=== PATIENT | male | born 1960 | race Caucasian/White ===

== ENCOUNTER 2017-04-17 18:08 | Emergency (ER) | payer MEDICAID ==
[2017-04-17 18:08] VITALS: BMI 28.3
[2017-04-17 18:15] VITALS: RESP 18; O2SAT 100
[2017-04-17] MEDS ORDERED: Lidocaine 5% Patch TD STA (19:40)
[2017-04-17] MEDS ORDERED: Lidocaine 5% Patch TD ONE (19:47)
--- NOTE | 2017-04-17 20:26 | C.PDOC ---
History Of Present Illness 56 year old male with a Hx of sciatica who presents to the ER with a complaint of lower back pain that radiates to the left leg. Patient admits he was moving heavy furniture today; he states he took motrin at home with minimal relief to pain. Denies saddle anesthesia, dysuria, hematuria, incontinence, or recent trauma. Time Seen by Provider: 04/17/17 19:14 Chief Complaint (Nursing): Back Pain History Per: Patient History/Exam Limitations: no limitations Onset/Duration Of Symptoms: Hrs Current Symptoms Are (Timing): Still Present Quality Of Discomfort: Unable To Describe Severity: None Previous Symptoms: Chronic Pain Associated Symptoms: None Recent travel outside of the [place]: No Past Medical History Reviewed: Historical Data, Nursing Documentation, Vital Signs Vital Signs: Last Vital Signs Temp 98.4 F 04/17/17 20:36 Pulse 71 04/17/17 20:36 Resp 18 04/17/17 20:36 BP 143/75 04/17/17 20:36 Pulse Ox 100 04/17/17 20:36 - Medical History Other PMH: Sciatica Surgical History: No Surg Hx Family History: States: Unknown Family Hx - Social History Hx Tobacco Use: Yes Hx Alcohol Use: No Hx Substance Use: No - Immunization History Hx Tetanus Toxoid Vaccination: No Hx Influenza Vaccination: No Hx Pneumococcal Vaccination: No Review Of Systems Genitourinary: Negative for: Dysuria, Incontinence, Hematuria Musculoskeletal: Positive for: Back Pain, Leg Pain Neurological: Negative for: Weakness, Numbness Physical Exam - Physical Exam Appears: Non-toxic, No Acute Distress Skin: Normal Color, Warm, Dry Head: Atraumatic, Normacephalic Oral Mucosa: Moist Back: No Vertebral Tenderness, Paraspinal Tenderness (left lumbar) Extremity: Normal ROM (x4), No Tenderness Neurological/Psych: Oriented x3, Normal Speech, Normal Cognition, Normal Motor, Normal Sensation ED Course And Treatment O2 Sat by Pulse Oximetry: 100 (Room air) Pulse Ox Interpretation: Normal Progress Note: Tylenol and flexeri administered. Lidoderm applied. On reevaluation, patient is no longer in pain; is ambulatory in the ER with a steady gait. Will discharge home with instructions to follow up with PMD. Medical Decision Making Medical Decision Making: pt feeling somewhat better; pt has lidoderm patches and ibupforen at home;.; will add flexeril and tylenol, d/c for home and f/u pmd. Disposition Counseled Patient/Family Regarding: Diagnosis, Need For Followup, Rx Given - Disposition [facility]errals: [facility] [Outside] [facility] [Outside] Disposition: HOME/ ROUTINE Disposition Time: 20:22 Condition: STABLE Additional Instructions: Utilice parches de lidoderm lyndsay 12 horas en el carmen dolorosa por da, luego retire por 12 horas y luego reemplace si es necesario el da ext. [place] Ibuprofen 600 mg por va oral (3 tabletas de 200 mg) cada 6 horas para el dolor ; (con comida). Tylenol se puede leidy cada 6 horas si el dolor es renetta. Cyclobenzaprine leidy cada 8 horas, no conducir o operar maquinaria porque te hace sooliento. Seguimiento en la clnica [place]. Llame al servicio de conserjera para obtener aung rossi antes de la consulta mdica para randhawa ciruga ocular. Vuelva a la andre de emergencia para no empeorar los sntomas. Prescriptions: Acetaminophen [Tylenol 325mg tab] 650 mg PO Q6 #30 tab Cyclobenzaprine [Cyclobenzaprine HCl] 10 mg PO Q8 #9 tab Instructions: Sciatica (ED) Forms: [facility] (Palestinian), Work Excuse Print Language: POLISH - Clinical Impression Clinical Impression: Sciatica - Scribe Statement The provider has reviewed the documentation as recorded by the Scribsteven Bustamante All medical record entries made by the Scribe were at my direction and personally dictated by me. I have reviewed the chart and agree that the record accurately reflects my personal performance of the history, physical exam, medical decision making, and the department course for this patient. I have also personally directed, reviewed, and agree with the discharge instructions and disposition.
[2017-04-17 20:37] VITALS: BP 143/75; PULSE 71; TEMP 98.4
== END 2017-04-17 20:48 | disposition home or self-care (01) ==
LOC: C.ER 18:08
DX: M54.30 Sciatica, unspecified side (principal)

== ENCOUNTER 2017-05-29 06:10 | Day surgery (SDC) | payer MEDICAID ==
[2017-04-11 16:19] VITALS: BMI 28.3
[~2017-05-29 06:10] MED LIST: Ciprofloxacin 0.3% OPTH SOLN OS SCH; Cyclopentolate 1% Opth (2 ml) OS SCH; Flurbiprofen 0.03% Opht SOLN OS SCH; Lactated Ringer's 500 ML IV ONE; Phenylephrine 2.5% Opht Soln OS SCH; Tropicamide 1% Opht SOLUTION OS SCH
[2017-05-29] MEDS ORDERED: Lactated Ringer's 500 ML IV ONE (07:02)
[2017-05-29 07:32] VITALS: O2SAT 100
[2017-05-29] MEDS ORDERED: Povidone Iodine Ophthalmic 5% Soln ONE (07:39)
[2017-05-29] MEDS ORDERED: Tobramycin/Dexamethasone (Tobradex) Opth Sol (2.5 ml) ONE (07:39)
[2017-05-29] MEDS ORDERED: Carbachol 0.01% IO ONE (07:39)
[2017-05-29] MEDS ORDERED: Tobramycin/Dexamethasone OPHT OINT ONE (07:40)
[2017-05-29] MEDS ORDERED: Lidocaine 2% Inj (20ml) ONE (07:40)
[2017-05-29] MEDS ORDERED: Tetracaine 0.5% Ophth (OR ONLY) ONE (07:40)
[2017-05-29] MEDS ORDERED: Hyaluronidase Human, Recombi 150 U/ML VIAL ONE (07:40)
[2017-05-29] MEDS ORDERED: Chondroitin/Hyaluronate Opth Syringe KIT (0.55 ml-0.5 ml) IO ONE (07:40)
[2017-05-29] MEDS ORDERED: Propofol 10 mg/ml Inj (20 ML) ONE (08:50)
[2017-05-29] MEDS ORDERED: Lidocaine Hydrochloride 5 ML INJ ONE (08:51)
[2017-05-29 09:50] VITALS: RESP 18; TEMP 97.2
[2017-05-29 09:52] VITALS: BP 130/70; PULSE 69
--- NOTE | 2017-05-30 05:32 | OP ---
PROCEDURE DATE: 05/29/2017 PREOPERATIVE DIAGNOSIS: Cataract, left eye. POSTOPERATIVE DIAGNOSIS: Cataract, left eye. OPERATIVE PROCEDURE: Cataract extraction with implant, left eye. ANESTHESIA TYPE: Local, standby. COMPLICATIONS: None. PROCEDURE: Local anesthesia was achieved using a mixture of 1% lidocaine and Amphadase. The patient was then prepped and draped in the usual sterile fashion for ophthalmic surgery. Betadine drops were placed into the eye. A lid speculum was used and a sideport incision was made using a 15 degree blade. Viscoelastic was used to fill the anterior chamber and a 2.7 millimeter slit blade was used to create a surgical opening. Additional viscoelastic was placed into the eye and a capsulorrhexis was performed. Hydrodissection and delineation were then carried out. Phacoemulsification of the nucleus was performed with ease and cortical cleanup was achieved without difficulty. The capsular bag was refilled using viscoelastic and a posterior chamber lens was inserted through the existing wound and placed into the capsular bag and easily centered. All viscoelastic was then aspirated from the eye and Miochol was instilled for good symmetric pupillary constriction. The sideport wound was hydrated as necessary and a good watertight closure was observed at the conclusion of the case. A TobraDex soaked collagen shield was then placed over the eye. The lid speculum was removed. TobraDex ointment was placed onto the eye and a patch and shield were placed. The patient tolerated the procedure well. Dustin Aguilar MD
== END 2017-05-29 10:28 | disposition home or self-care (01) ==
LOC: C.SDS 06:10
PROVIDERS: ATTEND Ophthalmology
DX: H25.12 Age-related nuclear cataract, left eye (principal)
CPT/HCPCS: 66984; J2704; J3470; J7120